=== PATIENT | female | born 1945 | race Caucasian/White ===

== ENCOUNTER 2017-10-23 22:26 | Inpatient (IN) | END 2017-10-27 19:35 | disposition home health service (06) | DRG 100 ==

== ENCOUNTER 2018-06-22 04:18 | Inpatient (IN) | payer MEDICARE, OTHER ==
[~2018-06-22] VITALS: Ht 152.4 cm; Wt 58.2 kg
[~2018-06-22 04:18] MED LIST: ACET325T33 PO; ALBU8.5H5 INH; ASPI-817 PO; FAMO-95 PO; LORA-186 PO; LOSA50TA14 PO; METO-448 PO; NITR-58 PO; NITR0.4T39 SL; SIMV20TA2 PO; VALP250C PO; ZOLP5TAB PO
[2018-06-22] MEDS ORDERED: BENA10TA4 PO (05:13)
[2018-06-22] MEDS ORDERED: LEVO25TA6 PO (05:13)
[2018-06-22] MEDS ORDERED: RISP1TAB3 PO (05:13)
[2018-06-22] MEDS ORDERED: ACETAMINOPHEN 325 MG TAB PO PRN (06:30)
[2018-06-22] MEDS ORDERED: NACL 0.9% 3 ML SYG IV SCH (06:30)
[2018-06-22] MEDS ORDERED: ONDANSETRON 4 MG INJ IV PRN (06:30)
[2018-06-22] MEDS: SOD CHLORIDE 0.9% 1,000 ML IV SCH ×3 (08:11→20:24)
[2018-06-22] MEDS ORDERED: ALBUTEROL 0.083% (NEB) 2.5 MG/3 ML AMP HHN PRN (16:00)
[2018-06-22 16:31] VITALS: PULSE 76
[2018-06-22 16:39] VITALS: BP 144/61; PULSE 75; RESP 16
[2018-06-22 16:46] VITALS: Ht 152.4 cm; Wt 58.2 kg
[2018-06-22] MEDS: LEVOFLOXACIN 500MG/D5W (PMX) 100 ML IVPB SCH (17:14)
[2018-06-22 20:00] VITALS: PULSE 80
[2018-06-22 20:08] VITALS: BP 132/67; PULSE 80; RESP 18
[2018-06-22] MEDS: METOPROLOL 25 MG TAB PO SCH (21:00)
[2018-06-22] MEDS: VALPROIC ACID 250 MG CAP PO SCH (21:00)
[2018-06-22] MEDS: FAMOTIDINE 20 MG TAB PO SCH (21:00)
[2018-06-22] MEDS: LOSARTAN 50 MG TAB PO SCH (21:00)
[2018-06-22] MEDS: ATORVASTATIN 10 MG TAB PO SCH (21:00)
--- NOTE | 2018-06-22 22:56 | ERD ---
ER Documentation Chief Complaint Chief Complaint BIB DAUGHTER FROM HOME W/ C/O COUGH X1 WEEK, DIFFICULTY AMBULATING HPI This is a 73-year-old female brought in by the daughter for essentially altered level of consciousness. Initial complaint was cough and difficulty ambulating for 1 week, however the daughter said that she has been out of sorts and confused over the past week. They feel that this is related to the increase in Depakote the patient recently underwent. No fevers no chills no nausea vomiting. No head trauma. No focal neurologic complaints and no focal weakness. No dysarthria noted. Patient seems somewhat confused history is limited. History per family at the bedside. ROS All systems reviewed and are negative except as per history of present illness. Medications Home Meds Active Scripts Valproic Acid* (Depakene*) 250 Mg Capsule, 500 MG PO BID for 60 Days, #30 CAP 4 Refills Prov:ANGELO CAMPOS MD 10/27/17 Acetaminophen* (Tylenol*) 325 Mg Tablet, 1 TAB PO Q6 PRN for PAIN AND OR ELEVATED TEMP, #20 TAB Prov:MICHEAL MARTINEZ NP 04/15/15 Metoprolol Tartrate* (Lopressor*) 25 Mg Tab, 25 MG PO BID for 30 Days, TAB Prov:JIMMY TERRAZAS. 03/22/15 Famotidine* (Pepcid* AC) 20 Mg Tab, 20 MG PO Q12 for 14 Days, TAB Prov:JIMMY TERRAZAS. 03/22/15 Simvastatin (Simvastatin) 20 Mg Tablet, 20 MG PO QHS, #30 TAB 1 Refill Prov:BRIAN KOENIG MD 02/01/15 Albuterol Sulfate* (Albuterol Sulfate* HFA) 8.5 Gm Hfa.aer.ad, 1-2 PUFF INH Q6, #1 INHALER Prov:BRIAN KOENIG MD 01/24/15 Reported Medications Levothyroxine Sodium* (Levothyroxine Sodium*) 25 Mcg Tablet, 25 MG PO QAM for 30 Days, #30 06/22/18 Risperidone* (Risperidone*) 1 Mg Tablet, 1 MG PO DAILY for 30 Days, #30 06/22/18 Benazepril Hcl* (Benazepril Hcl*) 10 Mg Tablet, 10 MG PO DAILY for 90 Days, #90 06/22/18 Losartan Potassium* (Losartan Potassium*) 50 Mg Tablet, 50 MG PO BID, TAB 04/24/15 Loratadine* (Claritin*) 10 Mg Tablet, 10 MG PO DAILY, TAB 01/29/15 Aspirin* (Aspirin* EC) 81 Mg Tablet.dr, 81 MG PO DAILY, TAB 11/07/14 Discontinued Scripts Nitrofurantoin Monohyd Macrocr* (Macrobid*) 100 Mg Capsr, 100 MG PO BID for 4 Days, #8 CAP Prov:ANGELO CAMPOS MD 10/27/17 Zolpidem Tartrate* (Ambien*) 5 Mg Tablet, 5 MG PO HS PRN for INSOMNIA, #7 TAB Prov:ASHLEY PERRY DO 05/06/15 Nitroglycerin* (Nitrostat*) 25 Tab Subl, 1 TAB SL Q5M PRN for CHEST PAIN, #30 TAB Prov:BRIAN KOENIG MD 02/01/15 Allergies Allergies: Coded Allergies: ertapenem (Unverified Allergy, Severe, 06/22/18) SEIZURES lacosamide (Verified Allergy, Unknown, 06/22/18) levetiracetam (Verified Allergy, Unknown, 06/22/18) hydrocodone (Unverified Adverse Reaction, Severe, Severe Nausea/Vomiting/Dizziness, 06/22/18) PMhx/Soc History of Surgery: Yes (Bladder reconstruction) Anesthesia Reaction: No Hx Neurological Disorder: Yes (seizures) Hx Respiratory Disorders: No Hx Cardiac Disorders: Yes (HTN, high cholesterol) Hx Psychiatric Problems: No Hx Miscellaneous Medical Probl: No Hx Alcohol Use: No Hx Substance Use: No Hx Tobacco Use: No Smoking Status: Never smoker Physical Exam Vitals Vital Signs Date Temp Pulse Resp B/P (MAP) Pulse Ox O2 O2 Flow FiO2 Time Delivery Rate 06/22/18 98.0 108 22 155/66 91 04:21 (95) Physical Exam Const: No acute distress Head: Atraumatic Eyes: Normal Conjunctiva ENT: Normal External Ears, Nose and Mouth. Neck: Full range of motion. No meningismus. Resp: Clear to auscultation bilaterally Cardio: Regular rate and rhythm, no murmurs Abd: Soft, non tender, non distended. Normal bowel sounds Skin: No petechiae or rashes Back: No midline or flank tenderness Ext: No cyanosis, or edema Neur: Awake and alert Psych: Normal Mood and Affect Result Diagram: 06/22/18 0440 06/22/18 0440 Results 24 hrs Laboratory Tests Test 06/22/18 04:40 06/22/18 05:25 06/22/18 05:29 06/22/18 05:34 White Blood Count 8.3 10^3/ul Red Blood Count 4.68 10^6/ul Hemoglobin 14.8 g/dl Hematocrit 43.0 % Mean Corpuscular 91.9 fl Volume Mean Corpuscular 31.6 pg Hemoglobin Mean Corpuscular 34.4 g/dl Hemoglobin Concent Red Cell 13.7 % Distribution Width Platelet Count 88 10^3/UL Mean Platelet 10.3 fl Volume Immature 2.200 % Granulocytes % Neutrophils % 35.6 % Lymphocytes % 46.1 % Monocytes % 15.4 % Eosinophils % 0.0 % Basophils % 0.7 % Nucleated Red Blood 0.0 /100WBC Cells % Immature 0.180 10^3/ul Granulocytes # Neutrophils # 2.9 10^3/ul Lymphocytes # 3.8 10^3/ul Monocytes # 1.3 10^3/ul Eosinophils # 0.0 10^3/ul Basophils # 0.1 10^3/ul Nucleated Red Blood 0.0 10^3/ul Cells # Platelet Estimate DECREASED Prothrombin Time 13.0 Sec Prothrombin Time 1.0 Ratio INR International 0.97 Normalized Ratio Activated 27.7 Sec Partial Thromboplas t Time Sodium Level 136 mmol/L Potassium Level 4.6 mmol/L Chloride Level 106 mmol/L Carbon Dioxide 22 mmol/L Level Anion Gap 8 Blood Urea Nitrogen 12 mg/dl Creatinine 0.78 mg/dl Est Glomerular mL/min Filtrat Rate mL/min Glucose Level 100 mg/dl Calcium Level 9.1 mg/dl Total Bilirubin 0.6 mg/dl Direct Bilirubin 0.00 mg/dl Indirect Bilirubin 0.6 mg/dl Aspartate Amino 33 IU/L Transf (AST/SGOT) Alanine 18 IU/L Aminotransferase (A LT/SGPT) Alkaline 82 IU/L Phosphatase Troponin I < 0.012 ng/ml B-Type Natriuretic 417 PG/ML Peptide Total Protein 7.3 g/dl Albumin 3.2 g/dl Globulin 4.10 g/dl Albumin/Globulin 0.78 Ratio Salicylates Level < 1.0 mg/dl Acetaminophen Level < 10.0 ug/ml Ethyl Alcohol Level < 10.0 mg/dl Bedside Glucose 91 mg/dL POC Venous Lactate 1.5 mmol/L Lactic Acid Level 1.7 mmol/L Procedures/MDM EKG: Rate/Rhythm: [Normal Sinus Rhythm] QRS, ST, T-waves: [No changes consistent w/ acute ischemia] Impression: [No evidence of ischemia or arrhythmia] Chest X-ray 1V Interpreted by me: Soft Tissue: No acute abnormalities Bones: No acute abnormalities Mediastinum/Cardiac Silhouette/Lungs: [No acute abnormalities] Medical decision makin female with undifferentiated altered mental status. Patient will be admitted for further evaluation and management. Hospitalist made aware of admission. Hospitalist also made aware of all results. Family at bedside notified. Departure Diagnosis: Primary Impression: Altered level of consciousness Condition: CHARI Navarro June 22, 2018 22:56
[2018-06-23] VITALS (11 sets, daily range): BP systolic 127–148; BP diastolic 63–79; PULSE 70–89; RESP 16–19
--- NOTE | 2018-06-23 07:15 | HP ---
DATE OF ADMISSION: 06/22/2018 PRESENTING COMPLAINT: Altered mentation. HISTORY OF PRESENTING COMPLAINT: This is a 73-year-old female with a history of a previous CVA, dyslipidemia and a high blood pressure, who was brought in by her daughter because of worsening mentation over the last 2 weeks. Apparently, the patient suffered a first time seizure about 2 weeks ago. Also then her mentation has been worsening to the point where the patient is now unable to ambulate or do ADLs by herself, which she was able to do prior. There is no fever. There has been no loss of consciousness. No visible bony abnormalities or defects or swelling. The patient daughter just says she has lost ability to do stuff on her own. PAST MEDICAL HISTORY: 1. Previous CVA. 2. Dyslipidemia. 3. Hypertension. 4. Hypothyroidism. 5. New onset seizure. PAST SURGICAL HISTORY: Repair of bladder prolapse. The patient is clinically disabled and prior to this was ambulatory with use of a walker. ALLERGIES: ALLERGIC TO HYDROCODONE CAUSES HER NAUSEA AND VOMITING. SOCIAL HISTORY: Denies tobacco, alcohol, history of drug use. FAMILY HISTORY: Noncontributory. HOME MEDICATIONS: Reviewed and reconciled. PHYSICAL EXAMINATION: VITAL SIGNS: Temperature 98.2, pulse 74, respirations 18, blood pressure 97/58, saturations 95% on room air. GENERAL: alert, oriented x1 only. Currently, no distress. HEENT: Head is normocephalic. No evidence of trauma. Pupils equal and reactive. NECK: Supple. CHEST: With diminished but clear breath sounds without crackles or wheezes. CARDIOVASCULAR: S1, S2. ABDOMEN: Soft, nontender, nondistended. EXTREMITIES: Lower extremities negative for edema. NEUROLOGIC: L sided hemiparesis, but global lethargy and weakness LABORATORY VALUES: Her laboratory values were reviewed. IMAGING: Chest x-ray showed a possible left lower lobe infiltrate. CT shows old occipital infarct, diffuse degenerative changes and evidence of sinusitis. ASSESSMENT: 1. Slowly worsening debility and loss of function with reduction in cognition over the last 2 weeks. 2. Possible urinary tract infection because of previous CVA, rule out acute infarct. 3. History of seizure disorder. 4. Dyslipidemia. 5. Hypertension. 6. Chronic allergies. 7. Hypothyroidism. 8. Possible left lower lobe pneumonia versus atelectasis. PLAN: Admit to telemetry for at least 24 hours to ensure no arrhythmia while we do a stroke workup. We will also get physical therapy to evaluate the patient as well as speech therapy. Begin empiric antibiotics for possible UTI and send urine for cultures. We will use antibiotic with coverage for possible aspiration pneumonitis as well. Resume all other medications. Neurology consultation as well. Other interventions depend on clinical course. The patient will also be maintained on seizure prophylaxis. Dictated By: JIMMY TERRAZAS MD BA/NTS Conf#: [id number] DID#: [id number] CC: AMPARO GRANADO MD;*EndCC* MTDD
[2018-06-23] MEDS ORDERED: LEVOTHYROXINE 25 MCG TAB PO SCH (09:00)
[2018-06-23] MEDS: BENAZEPRIL 10 MG TAB PO SCH (09:38)
[2018-06-23] MEDS: VALPROIC ACID 250 MG CAP PO SCH ×2 (09:38→21:51)
[2018-06-23] MEDS: LOSARTAN 50 MG TAB PO SCH ×2 (09:39→21:53)
[2018-06-23] MEDS: METOPROLOL 25 MG TAB PO SCH ×2 (09:39→21:53)
[2018-06-23] MEDS: LEVOTHYROXINE 25 MCG TAB PO SCH (09:39)
[2018-06-23] MEDS: ASPIRIN (EC) 81 MG TAB PO SCH (09:39)
[2018-06-23] MEDS: LORATADINE 10 MG TAB PO SCH (09:39)
[2018-06-23] MEDS: FAMOTIDINE 20 MG TAB PO SCH ×2 (09:39→21:52)
[2018-06-23] MEDS: SOD CHLORIDE 0.9% 1,000 ML IV SCH (09:40)
--- NOTE | 2018-06-23 10:44 | PN ---
Date/Time of Note Date/Time of Note DATE: 06/23/18 TIME: 10:36 Assessment/Plan VTE Prophylaxis Risk score (from Ns)>0 risk: 6 SCD applied (from Ns): Yes Pharmacological prophylaxis: LMWH Lines/Catheters IV [facility]from [facility] Saline Lock Urinary Cath still in place: No Assessment/Plan Hospital Course 1. Slowly worsening debility and loss of function with reduction in cognition over the last 2 weeks. --Physical therapy evaluation pending, await recommendations -Brain MRI was also done, await findings 2. Possible urinary tract infection because of previous CVA, rule out acute infarct. -Follow-up urine cultures 3. History of seizure disorder. 4. Dyslipidemia. 5. Hypertension. - Systolic blood pressure is still suboptimal in control, but will hold off on adjusting medications at this time as patient's blood pressure dropped significantly yesterday 6. Chronic allergies. 7. Hypothyroidism. -Patient was found to elevate have elevated TSH, but free T4 within normal range. Will slightly increase dosing of levothyroxine 8. Possible left lower lobe pneumonia versus atelectasis and Bronchitis? --We will also get 2D echo and continue antibiotics --Chest x-ray showed no congestion or effusion. PLAN: Continue patient supportive care, plan of care as above-. Further interventions per clinical course Result Diagram: 06/23/18 0555 06/23/18 0555 Results 24hrs Laboratory Tests Test 06/22/18 11:06 06/22/18 11:08 06/23/18 05:55 Valproic Acid (Depakene) Level 98 Lactic Acid Level 1.5 White Blood Count 5.7 # Red Blood Count 4.04 L Hemoglobin 12.7 Hematocrit 37.0 Mean Corpuscular Volume 91.6 Mean Corpuscular Hemoglobin 31.4 Mean Corpuscular Hemoglobin Concent 34.3 Red Cell Distribution Width 13.6 Platelet Count 100 L Mean Platelet Volume 9.7 Immature Granulocytes % 2.300 H Neutrophils % 40.0 Lymphocytes % 38.2 Monocytes % 19.1 H Eosinophils % 0.0 Basophils % 0.4 Nucleated Red Blood Cells % 0.0 Immature Granulocytes # 0.130 H Neutrophils # 2.3 Lymphocytes # 2.2 Monocytes # 1.1 H Eosinophils # 0.0 Basophils # 0.0 Nucleated Red Blood Cells # 0.0 Sodium Level 136 Potassium Level 4.6 Chloride Level 107 Carbon Dioxide Level 23 Anion Gap 6 Blood Urea Nitrogen 14 Creatinine 0.83 Est Glomerular Filtrat Rate mL/min Glucose Level 80 Calcium Level 8.6 Phosphorus Level 3.7 Magnesium Level 1.7 Total Bilirubin 0.7 Direct Bilirubin 0.00 Indirect Bilirubin 0.7 Aspartate Amino Transf (AST/SGOT) 42 Alanine Aminotransferase (ALT/SGPT) 22 Alkaline Phosphatase 52 Total Protein 5.7 #L Albumin 2.4 L Globulin 3.30 H Albumin/Globulin Ratio 0.72 Free Thyroxine 1.81 Subjective 24 Hr Interval Summary Free Text/Dictation Patient is doing much better per her daughter. She is more alert today and more interactive. She is still not speaking much however. Daughter also reporting a lot of phlegm. Daughter notes that patient had a lot of dyspnea with exertion prior to admission. Exam/Review of Systems Exam Vitals Vital Signs Date Temp Pulse Resp B/P (MAP) Pulse Ox O2 O2 Flow FiO2 Time Delivery Rate 06/23/18 79 08:00 06/23/18 98.7 18 148/77 96 07:25 (100) 06/23/18 Room Air 03:52 Intake and Output 06/22/18 06/22/18 06/23/18 1515:00 23:00 07:00 IntakeIntake Total 150 ml 800 ml BalanceBalance 150 ml 800 ml Exam Constitutional: alert, frail, follow commands appropriately, looks comfortable Head: atraumatic, normocephalic Neck: non-tender, supple Respiratory: clear to auscultation Cardiovascular: regular rate and rhythm Gastrointestinal: S/ NT / ND / +BS Extremities: no edema, good radial pulses Results Results 24hrs Laboratory Tests Test 06/22/18 11:06 06/22/18 11:08 06/23/18 05:55 Valproic Acid (Depakene) Level 98 Lactic Acid Level 1.5 White Blood Count 5.7 # Red Blood Count 4.04 L Hemoglobin 12.7 Hematocrit 37.0 Mean Corpuscular Volume 91.6 Mean Corpuscular Hemoglobin 31.4 Mean Corpuscular Hemoglobin Concent 34.3 Red Cell Distribution Width 13.6 Platelet Count 100 L Mean Platelet Volume 9.7 Immature Granulocytes % 2.300 H Neutrophils % 40.0 Lymphocytes % 38.2 Monocytes % 19.1 H Eosinophils % 0.0 Basophils % 0.4 Nucleated Red Blood Cells % 0.0 Immature Granulocytes # 0.130 H Neutrophils # 2.3 Lymphocytes # 2.2 Monocytes # 1.1 H Eosinophils # 0.0 Basophils # 0.0 Nucleated Red Blood Cells # 0.0 Sodium Level 136 Potassium Level 4.6 Chloride Level 107 Carbon Dioxide Level 23 Anion Gap 6 Blood Urea Nitrogen 14 Creatinine 0.83 Est Glomerular Filtrat Rate mL/min Glucose Level 80 Calcium Level 8.6 Phosphorus Level 3.7 Magnesium Level 1.7 Total Bilirubin 0.7 Direct Bilirubin 0.00 Indirect Bilirubin 0.7 Aspartate Amino Transf (AST/SGOT) 42 Alanine Aminotransferase (ALT/SGPT) 22 Alkaline Phosphatase 52 Total Protein 5.7 #L Albumin 2.4 L Globulin 3.30 H Albumin/Globulin Ratio 0.72 Free Thyroxine 1.81 Medications Medication Current Medications Sodium Chloride 1,000 ml @ 70 mls/hr [id number] IV Last administered on 06/23/18 09:40; Admin Dose 70 MLS/HR; Start 06/22/18 at 06:06 IV Flush (NS 3 ml) 3 ml PER PROTOCOL IV ; Start 06/22/18 at 06:30 Ondansetron HCl (Zofran Inj) 4 mg Q6H PRN IV NAUSEA/VOMITING; Start 06/22/18 at 06:30 Acetaminophen (Tylenol Tab) 650 mg Q6H PRN PO .PAIN 1-3 OR TEMP; Start 06/22/18 at 06:30 Aspirin (Halfprin) 81 mg DAILY PO Last administered on 06/23/18 09:39; Admin Dose 81 MG; Start 06/23/18 at 09:00 Benazepril HCl (Lotensin) 10 mg DAILY PO Last administered on 06/23/18 09:38; Admin Dose 10 MG; Start 06/23/18 at 09:00 Famotidine (Pepcid) 20 mg Q12 PO Last administered on 06/23/18 09:39; Admin Dose 20 MG; Start 06/22/18 at 21:00 Loratadine (Claritin) 10 mg DAILY PO Last administered on 06/23/18 09:39; Admin Dose 10 MG; Start 06/23/18 at 09:00 Losartan Potassium (Cozaar) 50 mg BID PO Last administered on 06/23/18 09:39; Admin Dose 50 MG; Start 06/22/18 at 21:00 Metoprolol Tartrate (Lopressor) 25 mg BID PO Last administered on 06/23/18at 09:39; Admin Dose 25 MG; Start 06/22/18 at 21:00 Valproic Acid (Depakene) 500 mg BID PO Last administered on 06/23/18at 09:38; Admin Dose 500 MG; Start 06/22/18 at 21:00 Atorvastatin Calcium (Lipitor) 10 mg DAILY@21 PO ; Start 06/22/18 at 21:00 Albuterol (Proventil 0.083% (Neb)) 2.5 mg Q4H RESP THERAPY PRN HHN SHORTNESS OF BREATH; Start 06/22/18 at 16:00 Levofloxacin/ Dextrose 100 ml @ 100 mls/hr Q48H IVPB Last administered on 06/22/18at 17:14; Admin Dose 100 MLS/HR; Start 06/22/18 at 16:00 Levothyroxine Sodium (Synthroid) 25 mcg QAM PO Last administered on 06/23/18at 09:39; Admin Dose 25 MCG; Start 06/23/18 at 09:00 JIMMY TERRAZAS June 23, 2018 10:44
[2018-06-23] MEDS ORDERED: MAGNESIUM SULFATE 1 GM/D5W 100 ML IVPB ONE (11:00)
[2018-06-23] MEDS: ENOXAPARIN 40 MG/0.4 ML SYG SC SCH (12:32)
[2018-06-23] MEDS ORDERED: LORAZEPAM 2 MG INJ IV ONE ×2 (15:00→15:30)
[2018-06-23] MEDS ORDERED: LORAZEPAM 2 MG INJ IV PRN (15:30)
--- NOTE | 2018-06-23 15:41 | STROKE ---
Date/Time of Note Date/Time of Note DATE: 06/23/18 TIME: 15:34 Patient Information General Patient location: inpatient Arrival Date Age 73 Gender female Weight 58.2 kg POC Glucose Glucose Result Bedside Glucose - 72 Hours Test 06/22/18 05:25 Bedside Glucose 91 mg/dL (70-220) Vital Signs Vital Signs Vital Signs Date Temp Pulse Resp B/P (MAP) Pulse Ox O2 O2 Flow FiO2 Time Delivery Rate 06/23/18 70 12:17 06/23/18 98.5 19 140/79 96 11:02 (99) 06/23/18 Room Air 03:52 Patient History Current Medications Allergies: Coded Allergies: ertapenem (Unverified Allergy, Severe, 06/22/18) SEIZURES lacosamide (Verified Allergy, Unknown, 06/22/18) levetiracetam (Verified Allergy, Unknown, 06/22/18) hydrocodone (Unverified Adverse Reaction, Severe, Severe Nausea/Vomiting/Dizziness, 06/22/18) History & Physical Patient History Notes Pt Hx Reviewed History of Present Illness 73yo had a first time sz 2 weeks ago and then started Depakote, but weaker since then and lost ambulation, admitted for AMS. Found to have UTI with baseline right hemiparesis from previous stroke. Now with acute onset twitching on left face with slurred speech. Patient missed her Depakote last night but dose was increased this morning from 250 BID to 500 BID. Review of Systems Constitutional: no symptoms reported EENTM: no symptoms reported Respiratory: no symptoms reported Cardiovascular: no symptoms reported Gastrointestinal: no symptoms reported Genitourinary: no symptoms reported Musculoskeletal: no symptoms reported Skin: no symptoms reported Psychiatric/Neurological: no symptoms reported All Other Systems: Reviewed and Negative NIH Stroke Scale NIH Stroke Scale [id number] 4d LOC Questions: Gcojy4g LOC Commands: Zlguf0q t Gaze: Nvvim6t : Vvuum7n alsy: Aortr6m rm - Left: Dkpmg9g - Right: Nkfly7p eft: Pkmbu8o - Right: Jsgkk1a Kltpb0r Qrpxb9j st Language: Pnqvg5a venita: Nmzyp7d : Wqlko1a in the left face) Date/Time Recorded DATE: 06/23/18 TIME: 15:34 Submitted By Dion Peña t-PA Imaging Review Imaging Reviewed: Yes Date/Time Imaging Reviewed DATE: 06/23/18 TIME: 15:34 Inclusion/Exclusion Criteria CT Head- no acute changes t-PA Administration Recommendation: No Weight 58.2 kg Recommedation submitted by Dion Peña Reason t-PA not Recommended not stroke t-PA Not Recommended Date/Time 15:00 Recommendations Impression Diagnosis seizure Recommendation 73yo F presents with acute onset confusion and left facial twitching. Neurological exam is notable for patient's baseline left sided weakness and numbness as well as new left facial twitching and right gaze deviation. I believe the patient is having focal seizures. Patient was administered Ativan 2mg IV x 1 and seizures stopped clinically. Depakote dose has been increased today and I recommend checking valproate level in the morning prior to first dose. I recommend EEG as well. DION PEÑA June 23, 2018 15:41
--- NOTE | 2018-06-23 16:31 | CONS ---
Assessment/Plan Assessment/Plan Hospital Course 73 yo F with hx of seizures who presents for evaluation of progressive ams and weakness... for which neurology is consulted. The pt appears to have a refractory UTI, which is likely to be contributing. This is most clinically consistent with an acute toxic-metabolic encephalopathy in the context of systemic infection. A focal [employer] process is less likely. MRI is reassuringly without acute intracranial pathology. P: EEG to exclude subclinical seizures Cont depakote 750mg BID for now; repeat level in am Ativan IV PRN prolonged seizure or for cluster [place] as able Limit sedating medications where possible PT/OT/ST as necessary Will follow clinically Consultation Date/Type/Reason Admit Date/Time June 23, 2018 at 10:46 Type of Consult Neurology Reason for Consultation ams Requesting Provider: JIMMY TERRAZAS Date/Time of Note DATE: 06/23/18 TIME: 16:30 Hx of Present Illness 73 yo F with hx of seizures and other comorbidities who presented to the ED for evaluation of increasing ams and generalized weakness x 2 weeks. History was obtained from family and chart review as pt is currently unable to contribute. Per the family, the pt had a seizure about 2 weeks ago, for which she was taken to [facility]. She was found to have a UTI and started on abx for it. For her seizures, she normally takes depakote 500mg BID. During her hospitali zation, they increased her depakote to 750mg BID. The family states that since her dose increase, she has become progressively altered, weak, and unable to walk. It is additionally elsewhere noted: PRESENTING COMPLAINT: Altered mentation. HISTORY OF PRESENTING COMPLAINT: This is a 73-year-old female with a history of a previous CVA, dyslipidemia and a high blood pressure, who was brought in by her daughter because of worsening mentation over the last 2 weeks. Apparently, the patient suffered a first time seizure about 2 weeks ago. Also then her mentation has been worsening to the point where the patient is unable to ambulate or do ADLs by herself, which she was able to do prior. There is no fever. There has been no loss of consciousness. No visible bony abnormalities or defects or swelling. The patient just says ____ lost ability to do stuff on her own. Subjective hx not possible: pt non-verbal Exam/Review of Systems Exam Vitals Vital Signs Date Temp Pulse Resp B/P (MAP) Pulse Ox O2 O2 Flow FiO2 Time Delivery Rate 06/23/18 77 16:24 06/23/18 98.5 19 140/79 96 11:02 (99) 06/23/18 Room Air 03:52 Intake and Output 06/22/18 06/22/18 06/23/18 1515:00 23:00 07:00 IntakeIntake Total 150 ml 800 ml BalanceBalance 150 ml 800 ml Exam PE: Gen Appearance: No Apparent Distress HEENT: Normocephalic Cardiovascular: Regular rate Abdomen: Soft Extremities: Dry NE: The patient was obtunded and nonverbal. Moans to noxious stimuli. Cranial nerve examination was limited by mental status. Pupils were equal and reactive to light. There was no afferent pupillary defect. Funduscopic examination was limited. Face was grossly symmetric, w/ present corneal and cough reflexes. Tone was normal. Muscle bulk was reduced. I did not see fasciculations. The patient withdrew to noxious stimulation x 4. Coordination and gait testing was limited by mental status. Arm and leg reflexes were within normal limits and symmetric. Cuevas's sign was absent. Plantar responses were flexor. Results Result Diagram: 06/23/18 0555 06/23/18 0555 Results 24hrs Laboratory Tests Test 06/23/18 05:55 White Blood Count 5.7 # Red Blood Count 4.04 L Hemoglobin 12.7 Hematocrit 37.0 Mean Corpuscular Volume 91.6 Mean Corpuscular Hemoglobin 31.4 Mean Corpuscular Hemoglobin Concent 34.3 Red Cell Distribution Width 13.6 Platelet Count 100 L Mean Platelet Volume 9.7 Immature Granulocytes % 2.300 H Neutrophils % 40.0 Lymphocytes % 38.2 Monocytes % 19.1 H Eosinophils % 0.0 Basophils % 0.4 Nucleated Red Blood Cells % 0.0 Immature Granulocytes # 0.130 H Neutrophils # 2.3 Lymphocytes # 2.2 Monocytes # 1.1 H Eosinophils # 0.0 Basophils # 0.0 Nucleated Red Blood Cells # 0.0 Sodium Level 136 Potassium Level 4.6 Chloride Level 107 Carbon Dioxide Level 23 Anion Gap 6 Blood Urea Nitrogen 14 Creatinine 0.83 Est Glomerular Filtrat Rate mL/min Glucose Level 80 Calcium Level 8.6 Phosphorus Level 3.7 Magnesium Level 1.7 Total Bilirubin 0.7 Direct Bilirubin 0.00 Indirect Bilirubin 0.7 Aspartate Amino Transf (AST/SGOT) 42 Alanine Aminotransferase (ALT/SGPT) 22 Alkaline Phosphatase 52 Total Protein 5.7 #L Albumin 2.4 L Globulin 3.30 H Albumin/Globulin Ratio 0.72 Free Thyroxine 1.81 Medications Medication Current Medications Sodium Chloride 1,000 ml @ 70 mls/hr [id number] IV Last administered on 06/23/18 09:40; Admin Dose 70 MLS/HR; Start 06/22/18 at 06:06 IV Flush (NS 3 ml) 3 ml PER PROTOCOL IV ; Start 06/22/18 at 06:30 Ondansetron HCl (Zofran Inj) 4 mg Q6H PRN IV NAUSEA/VOMITING; Start 06/22/18 at 06:30 Acetaminophen (Tylenol Tab) 650 mg Q6H PRN PO .PAIN 1-3 OR TEMP; Start 06/22/18 at 06:30 Aspirin (Halfprin) 81 mg DAILY PO Last administered on 06/23/18 09:39; Admin Dose 81 MG; Start 06/23/18 at 09:00 Benazepril HCl (Lotensin) 10 mg DAILY PO Last administered on 06/23/18 09:38; Admin Dose 10 MG; Start 06/23/18 at 09:00 Famotidine (Pepcid) 20 mg Q12 PO Last administered on 06/23/18 09:39; Admin Dose 20 MG; Start 06/22/18 at 21:00 Loratadine (Claritin) 10 mg DAILY PO Last administered on 06/23/18 09:39; Admin Dose 10 MG; Start 06/23/18 at 09:00 Losartan Potassium (Cozaar) 50 mg BID PO Last administered on 06/23/18 09:39; Admin Dose 50 MG; Start 06/22/18 at 21:00 Metoprolol Tartrate (Lopressor) 25 mg BID PO Last administered on 06/23/18 09:39; Admin Dose 25 MG; Start 06/22/18 at 21:00 Valproic Acid (Depakene) 500 mg BID PO Last administered on 06/23/18 09:38; Admin Dose 500 MG; Start 06/22/18 at 21:00 Atorvastatin Calcium (Lipitor) 10 mg DAILY@21 PO ; Start 06/22/18 at 21:00 Albuterol (Proventil 0.083% (Neb)) 2.5 mg Q4H RESP THERAPY PRN HHN SHORTNESS OF BREATH; Start 06/22/18 at 16:00 Levofloxacin/ Dextrose 100 ml @ 100 mls/hr Q48H IVPB Last administered on 06/22/18at 17:14; Admin Dose 100 MLS/HR; Start 06/22/18 at 16:00 Levothyroxine Sodium (Synthroid) 25 mcg QAM PO Last administered on 06/23/18at 09:39; Admin Dose 25 MCG; Start 06/23/18 at 09:00 Enoxaparin Sodium (Lovenox) 40 mg DAILY SC Last administered on 06/23/18at 12:32; Admin Dose 40 MG; Start 06/23/18 at 11:00 Lorazepam (Ativan) 2 mg Q4H PRN IV SEIZURES; Start 06/23/18 at 15:30 Past Medical History reviewed Home Meds Active Scripts Valproic Acid* (Depakene*) 250 Mg Capsule, 500 MG PO BID for 60 Days, #30 CAP 4 Refills Prov:ANGELO CAMPOS MD 10/27/17 Acetaminophen* (Tylenol*) 325 Mg Tablet, 1 TAB PO Q6 PRN for PAIN AND OR ELEVATED TEMP, #20 TAB Prov:MICHEAL MARTINEZ NP 04/15/15 Metoprolol Tartrate* (Lopressor*) 25 Mg Tab, 25 MG PO BID for 30 Days, TAB Prov:JIMMY TERRAZAS 03/22/15 Famotidine* (Pepcid* AC) 20 Mg Tab, 20 MG PO Q12 for 14 Days, TAB Prov:JIMMY TERRAZAS. 03/22/15 Simvastatin (Simvastatin) 20 Mg Tablet, 20 MG PO QHS, #30 TAB 1 Refill Prov:BRIAN KOENIG MD 02/01/15 Albuterol Sulfate* (Albuterol Sulfate* HFA) 8.5 Gm Hfa.aer.ad, 1-2 PUFF INH Q6, #1 INHALER Prov:BRIAN KOENIG MD 01/24/15 Reported Medications Levothyroxine Sodium* (Levothyroxine Sodium*) 25 Mcg Tablet, 25 MG PO QAM for 30 Days, #30 5/15/19 Risperidone* (Risperidone*) 1 Mg Tablet, 1 MG PO DAILY for 30 Days, #30 06/22/18 Benazepril Hcl* (Benazepril Hcl*) 10 Mg Tablet, 10 MG PO DAILY for 90 Days, #90 06/22/18 Losartan Potassium* (Losartan Potassium*) 50 Mg Tablet, 50 MG PO BID, TAB 04/24/15 Loratadine* (Claritin*) 10 Mg Tablet, 10 MG PO DAILY, TAB 01/29/15 Aspirin* (Aspirin* EC) 81 Mg Tablet.dr, 81 MG PO DAILY, TAB 11/07/14 Discontinued Scripts Nitrofurantoin Monohyd Macrocr* (Macrobid*) 100 Mg Capsr, 100 MG PO BID for 4 D ays, #8 CAP Prov:ANGELO CAMPOS MD 10/27/17 Zolpidem Tartrate* (Ambien*) 5 Mg Tablet, 5 MG PO HS PRN for INSOMNIA, #7 TAB Prov:ASHLEY PERRY DO 05/06/15 Nitroglycerin* (Nitrostat*) 25 Tab Subl, 1 TAB SL Q5M PRN for CHEST PAIN, #30 TAB Prov:BRIAN KOENIG MD 02/01/15 Medications Current Medications Sodium Chloride 1,000 ml @ 70 mls/hr [id number] IV Last administered on 06/23/18at 09:40; Admin Dose 70 MLS/HR; Start 06/22/18 at 06:06 IV Flush (NS 3 ml) 3 ml PER PROTOCOL IV ; Start 06/22/18 at 06:30 Ondansetron HCl (Zofran Inj) 4 mg Q6H PRN IV NAUSEA/VOMITING; Start 06/22/18 at 06:30 Acetaminophen (Tylenol Tab) 650 mg Q6H PRN PO .PAIN 1-3 OR TEMP; Start 06/22/18 at 06:30 Aspirin (Halfprin) 81 mg DAILY PO Last administered on 06/23/18at 09:39; Admin Dose 81 MG; Start 06/23/18 at 09:00 Benazepril HCl (Lotensin) 10 mg DAILY PO Last administered on 06/23/18at 09:38; Admin Dose 10 MG; Start 06/23/18 at 09:00 Famotidine (Pepcid) 20 mg Q12 PO Last administered on 06/23/18 09:39; Admin Dose 20 MG; Start 06/22/18 at 21:00 Loratadine (Claritin) 10 mg DAILY PO Last administered on 06/23/18 09:39; Admin Dose 10 MG; Start 06/23/18 at 09:00 Losartan Potassium (Cozaar) 50 mg BID PO Last administered on 06/23/18 09:39; Admin Dose 50 MG; Start 06/22/18 at 21:00 Metoprolol Tartrate (Lopressor) 25 mg BID PO Last administered on 06/23/18 09:39; Admin Dose 25 MG; Start 06/22/18 at 21:00 Valproic Acid (Depakene) 500 mg BID PO Last administered on 06/23/18 09:38; Admin Dose 500 MG; Start 06/22/18 at 21:00 Atorvastatin Calcium (Lipitor) 10 mg DAILY@21 PO ; Start 06/22/18 at 21:00 Albuterol (Proventil 0.083% (Neb)) 2.5 mg Q4H RESP THERAPY PRN HHN SHORTNESS OF BREATH; Start 06/22/18 at 16:00 Levofloxacin/ Dextrose 100 ml @ 100 mls/hr Q48H IVPB Last administered on 06/22/18 17:14; Admin Dose 100 MLS/HR; Start 06/22/18 at 16:00 Levothyroxine Sodium (Synthroid) 25 mcg QAM PO Last administered on 06/23/18 09:39; Admin Dose 25 MCG; Start 06/23/18 at 09:00 Enoxaparin Sodium (Lovenox) 40 mg DAILY SC Last administered on 06/23/18at 12:32; Admin Dose 40 MG; Start 06/23/18 at 11:00 Lorazepam (Ativan) 2 mg Q4H PRN IV SEIZURES; Start 06/23/18 at 15:30 Allergies: Coded Allergies: ertapenem (Unverified Allergy, Severe, 06/22/18) SEIZURES lacosamide (Verified Allergy, Unknown, 06/22/18) levetiracetam (Verified Allergy, Unknown, 06/22/18) hydrocodone (Unverified Adverse Reaction, Severe, Severe Nausea/Vomiting/Dizziness, 06/22/18) Past Surgical History reviewed Past Surgical Hx: other Social History reviewed Smoking Status: Never smoker AMNA GRISSOM NP June 23, 2018 16:31 CLAIRE MARQUES June 24, 2018 15:24
--- NOTE | 2018-06-23 18:08 | QN ---
Documentation Comment As Physician Advisor I have reviewed the chart and have determined that as of today, this patient continues to receive medically necessary care required for the diagnosis and treatment of illness or injury. There has been no unreasonable delay in the rendering of medically necessary services, and medically necessary care has required a length of stay greater than two midnights. Additional information gained during the stay now suggests this patient should have been classified as an inpatient at the time of admission, and I will change the status to inpatient to reflect that medical judgment. Besides the notes from the medical providers, the following information was used in this determination: Ongoing seizures, need for advanced imaging and EEG IV antibiotics Please call me at [phone] with questions. DENTON WANG MD June 23, 2018 18:08
--- NOTE | 2018-06-23 18:10 | RADRPT ---
Echocardiogram Report Patient Name: Stephania WILKINSnt ID: [id number] : 1945 (73y 1m)Study Date: 06/23/2018 11:23:31 AM Gender: FAccession #: [id number] Tech: Emmanuel Larry [facility] Location: [id number] Ref.Physician: JIMMY TERRAZAS Height(Cm): BSA: Weight(Kg): Quality: AdequateOrder Physician: JIMMY TERRAZAS Account #: Procedures: Echocardiographic Report: Transthoracic echocardiogram with complete 2D, M-Mode, and doppler examination. Indications: Shortness of breath with exertion. Measurements: 2D/M Mode Doppler Measurement Value Normal Range Measurement Value Normal Range LVIDd 2D 3.8 [ 3.8 - 5.2 ] cm AV Peak Aung 1.3 [ 100.0 - 170.0 ] cm/sec LVIDs 2D 2.2 [ 2.2 - 3.5 ] cm AV Peak PG 6.0 [ 2.0 - 9.0 ] mmHg LVPWd 2D 1.1 [ 0.6 - 0.9 ] cm AI Peak PG 76.0 mmHg IVSd 2D 1.3 [ 0.6 - 0.9 ] cm AI Peak Aung 4.4 cm/sec AoR Diam 2D 3.1 [ 2.3 - 3.1 ] cm AI PHT 440.0 msec EDV 2D 60.4 [ 46.0 - 106.0 ] ml LVOT Peak Aung 0.9 [ 70.0 - 110.0 ] cm/sec ESV 2D 17.0 [ 14.0 - 42.0 ] ml LVOT Peak PG 3.0 [ 2.0 - 6.0 ] mmHg EF 2D 71.9 [ 54.0 - 74.0 ] percent MV E Peak Aung 0.5 [ 60.0 - 130.0 ] cm/sec LA Dimen 2D 2.1 [ 2.7 - 3.8 ] cm MV A Peak Aung 0.6 [ 100.0 - 120.0 ] cm/sec MV E/A 0.8 [ 0.8 - 1.5 ] ratio MV Decel Time 197 [ 104 - 258 ] msec Lat E` Aung 0.1 [ 10.0 - 15.0 ] cm/sec Lateral E/E` 8.8 [ 1.0 - 2.0 ] ratio MV E/A 0.8 [ 0.8 - 1.5 ] ratio TR Peak Aung 2.3 [ 100.0 - 280.0 ] cm/sec TR Peak PG 21.0 mmHg RVSP 24.0 [ 10.0 - 36.0 ] mmHg RA Pressure 3.0 mmHg Findings: Left Ventricle: Normal left ventricular systolic function. Normal left ventricular cavity size. Mild concentric left ventricular hypertrophy. Ejection fraction is visually estimated at 60 %. Tissue Doppler/Mitral Doppler indices are consistent with impaired relaxation (Stage I diastolic dysfunction). Right Ventricle: Normal right ventricular size. Normal right ventricular systolic function. Left Atrium: There is mild enlargement of left atrium. Right Atrium: The right atrium is normal in size. Mitral Valve: Normal appearance and function of the mitral valve with trace physiologic regurgitation. Aortic Valve: No hemodynamically significant aortic stenosis by doppler. Moderate aortic valve regurgitation. Tricuspid Valve: Normal appearance of the tricuspid valve. Estimated peak PA systolic pressure 24 mmHg. There is trace to mild tricuspid regurgitation. Pulmonic Valve: There is mild pulmonic regurgitation. Pericardium: Normal pericardium with no significant pericardial effusion. Aorta: Normal aortic root. IVC: Normal size and normal respiratory collapse consistent with normal right atrial pressure. Conclusions: Normal left ventricular systolic function. Normal left ventricular cavity size. Mild concentric left ventricular hypertrophy. Ejection fraction is visually estimated at 60 %. Tissue Doppler/Mitral Doppler indices are consistent with impaired relaxation (Stage I diastolic dysfunction). Moderate aortic valve regurgitation. Estimated peak PA systolic pressure 24 mmHg. Normal size and normal respiratory collapse consistent with normal right atrial pressure. Electronically Signed By: Neri Palencia 2018-06-23 18:09:14 PDT
[2018-06-23] MEDS: ATORVASTATIN 10 MG TAB PO SCH (21:00)
[2018-06-24] VITALS (11 sets, daily range): BP systolic 94–155; BP diastolic 52–79; PULSE 67–84; RESP 16–69
[2018-06-24] MEDS: SOD CHLORIDE 0.9% 1,000 ML IV SCH ×2 (01:09→15:14)
[2018-06-24] MEDS: FAMOTIDINE 20 MG TAB PO SCH ×2 (08:07→20:41)
[2018-06-24] MEDS: VALPROIC ACID 250 MG CAP PO SCH ×2 (08:07→20:41)
[2018-06-24] MEDS: LORATADINE 10 MG TAB PO SCH (08:07)
[2018-06-24] MEDS: BENAZEPRIL 10 MG TAB PO SCH (08:08)
[2018-06-24] MEDS: ASPIRIN (EC) 81 MG TAB PO SCH (08:08)
[2018-06-24] MEDS: LEVOTHYROXINE 25 MCG TAB PO SCH (08:08)
[2018-06-24] MEDS: LOSARTAN 50 MG TAB PO SCH ×2 (08:08→20:42)
[2018-06-24] MEDS: METOPROLOL 25 MG TAB PO SCH ×2 (08:09→20:42)
[2018-06-24] MEDS: ENOXAPARIN 40 MG/0.4 ML SYG SC SCH (08:19)
--- NOTE | 2018-06-24 11:11 | PN ---
Date/Time of Note Date/Time of Note DATE: 06/24/18 TIME: 11:01 Assessment/Plan VTE Prophylaxis Risk score (from Nsg)>0 risk: 6 SCD applied (from Nsg): Yes Lines/Catheters IV Catheter Type (from Nrsg): Peripheral IV Urinary Cath still in place: No Assessment/Plan Hospital Course Subjective: Objective: Constitutional: alert, frail, follow commands appropriately, looks comfortable Head: atraumatic, normocephalic Neck: non-tender, supple Respiratory: clear to auscultation Cardiovascular: regular rate and rhythm Gastrointestinal: S/ NT / ND / +BS Extremities: no edema, good radial pulses previous left-sided hemiparesis, Assessment and plan: 1. Slowly worsening debility and loss of function with reduction in cognition over the last 2 weeks. 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 Old infarct in the medial right occipital lobe noted. -Because of debility is likely change in dosage of antiseizure medication in addition to urinary tract infection. 2. UTI -urine cultures growing gram-negative rods, follow-up final ID and sensitivities -Continue empiric antibiotics 3. Seizure disorder with breakthrough seizures yesterday, focal seizures left- sided drooping and facial twitching -neurology following for antiseizure dosing management -Follow-up EEG 4. Previous CVA with left-sided hemiparesis 5. Hypertension. - Patient patient having improved blood pressure control 6. Dyslipidemia 7. Hypothyroidism. -Patient was found to elevate have elevated TSH, but free T4 within normal range. Will slightly increase dosing of levothyroxine to 50 8. Possible left lower lobe pneumonia versus atelectasis and Bronchitis? --2D echocardiogram showed preserved ejection fraction at 60% but with stage I diastolic dysfunction and moderate aortic valve regurgitation. -Patient may be having a mild diastolic dysfunction CHF contributing to dyspnea on exertion -Continue empiric antibiotics, spot diuresis as needed --Chest x-ray showed no congestion or effusion. -Cardiology review for AVR? PLAN: Continue patient supportive care, plan of care as above-. Further interventions per clinical course -Antiseizure management per neurology, ARU eval Result Diagram: 06/24/18 0547 06/24/18 0547 Results 24hrs Laboratory Tests Test 06/24/18 05:47 White Blood Count 8.8 # Red Blood Count 4.06 L Hemoglobin 12.6 Hematocrit 37.5 Mean Corpuscular Volume 92.4 Mean Corpuscular Hemoglobin 31.0 Mean Corpuscular Hemoglobin Concent 33.6 Red Cell Distribution Width 13.7 Platelet Count 132 #L Mean Platelet Volume 9.1 Immature Granulocytes % 1.100 H Neutrophils % 42.1 Lymphocytes % 33.1 Monocytes % 23.4 H Eosinophils % 0.0 Basophils % 0.3 Nucleated Red Blood Cells % 0.0 Immature Granulocytes # 0.100 H Neutrophils # 3.7 Lymphocytes # 2.9 Monocytes # 2.1 H Eosinophils # 0.0 Basophils # 0.0 Nucleated Red Blood Cells # 0.0 Sodium Level 139 Potassium Level 4.2 Chloride Level 110 Carbon Dioxide Level 22 Anion Gap 7 Blood Urea Nitrogen 14 Creatinine 0.75 Est Glomerular Filtrat Rate mL/min Glucose Level 78 Calcium Level 8.7 Phosphorus Level 3.8 Magnesium Level 1.9 Valproic Acid (Depakene) Level 54 Exam/Review of Systems Exam Vitals Vital Signs Date Temp Pulse Resp B/P (MAP) Pulse Ox O2 O2 Flow FiO2 Time Delivery Rate 06/24/18 84 08:13 06/24/18 98.1 16 114/79 96 07:35 (91) 06/24/18 Nasal 2.0 04:00 Cannula Intake and Output 06/23/18 06/23/18 06/24/18 1515:00 23:00 07:00 IntakeIntake Total 100 ml 200 ml 960 ml BalanceBalance 100 ml 200 ml 960 ml Results Results 24hrs Laboratory Tests Test 06/24/18 05:47 White Blood Count 8.8 # Red Blood Count 4.06 L Hemoglobin 12.6 Hematocrit 37.5 Mean Corpuscular Volume 92.4 Mean Corpuscular Hemoglobin 31.0 Mean Corpuscular Hemoglobin Concent 33.6 Red Cell Distribution Width 13.7 Platelet Count 132 #L Mean Platelet Volume 9.1 Immature Granulocytes % 1.100 H Neutrophils % 42.1 Lymphocytes % 33.1 Monocytes % 23.4 H Eosinophils % 0.0 Basophils % 0.3 Nucleated Red Blood Cells % 0.0 Immature Granulocytes # 0.100 H Neutrophils # 3.7 Lymphocytes # 2.9 Monocytes # 2.1 H Eosinophils # 0.0 Basophils # 0.0 Nucleated Red Blood Cells # 0.0 Sodium Level 139 Potassium Level 4.2 Chloride Level 110 Carbon Dioxide Level 22 Anion Gap 7 Blood Urea Nitrogen 14 Creatinine 0.75 Est Glomerular Filtrat Rate mL/min Glucose Level 78 Calcium Level 8.7 Phosphorus Level 3.8 Magnesium Level 1.9 Valproic Acid (Depakene) Level 54 Medications Medication Current Medications Sodium Chloride 1,000 ml @ 70 mls/hr [id number] IV Last administered on 06/24/18at 01:09; Admin Dose 70 MLS/HR; Start 06/22/18 at 06:06 IV Flush (NS 3 ml) 3 ml PER PROTOCOL IV ; Start 06/22/18 at 06:30 Ondansetron HCl (Zofran Inj) 4 mg Q6H PRN IV NAUSEA/VOMITING; Start 06/22/18 at 06:30 Acetaminophen (Tylenol Tab) 650 mg Q6H PRN PO .PAIN 1-3 OR TEMP; Start 06/22/18 at 06:30 Aspirin (Halfprin) 81 mg DAILY PO Last administered on 06/24/18at 08:08; Admin Dose 81 MG; Start 06/23/18 at 09:00 Benazepril HCl (Lotensin) 10 mg DAILY PO Last administered on 06/24/18at 08:08; Admin Dose 10 MG; Start 06/23/18 at 09:00 Famotidine (Pepcid) 20 mg Q12 PO Last administered on 06/24/18at 08:07; Admin Dose 20 MG; Start 06/22/18 at 21:00 Loratadine (Claritin) 10 mg DAILY PO Last administered on 06/24/18at 08:07; Admin Dose 10 MG; Start 06/23/18 at 09:00 Losartan Potassium (Cozaar) 50 mg BID PO Last administered on 06/24/18 08:08; Admin Dose 50 MG; Start 06/22/18 at 21:00 Metoprolol Tartrate (Lopressor) 25 mg BID PO Last administered on 06/24/18at 0 8:09; Admin Dose 25 MG; Start 06/22/18 at 21:00 Valproic Acid (Depakene) 500 mg BID PO Last administered on 06/24/18at 08:07; Admin Dose 500 MG; Start 06/22/18 at 21:00 Atorvastatin Calcium (Lipitor) 10 mg DAILY@21 PO ; Start 06/22/18 at 21:00 Albuterol (Proventil 0.083% (Neb)) 2.5 mg Q4H RESP THERAPY PRN HHN SHORTNESS OF BREATH; Start 06/22/18 at 16:00 Levofloxacin/ Dextrose 100 ml @ 100 mls/hr Q48H IVPB Last administered on 06/22/18at 17:14; Admin Dose 100 MLS/HR; Start 06/22/18 at 16:00 Levothyroxine Sodium (Synthroid) 25 mcg QAM PO Last administered on 06/24/18at 08:08; Admin Dose 25 MCG; Start 06/23/18 at 09:00 Enoxaparin Sodium (Lovenox) 40 mg DAILY SC Last administered on 06/24/18at 08:19; Admin Dose 40 MG; Start 06/23/18 at 11:00 Lorazepam (Ativan) 2 mg Q4H PRN IV SEIZURES; Start 06/23/18 at 15:30 JIMMY TERRAZAS June 24, 2018 11:11
--- NOTE | 2018-06-24 12:16 | CONS ---
Assessment/Plan Assessment/Plan Hospital Course (Demo Recall) Moderate aortic regurgitation: EF preserved and no CHF on exam. Needs serial monitoring yearly as outpt or if develops symptoms/CHF Seizures h/o CVA HTN -ASA, lipitor -d/c benazepril as already on losartan 50mg BID and BP low this am -metoprolol 25mg BID Consultation Date/Type/Reason Admit Date/Time June 23, 2018 at 10:46 Date of Consultation: June 24, 2018 Type of Consult Cardiology Reason for Consultation aortic regurgitation Requesting Provider: JIMMY TERRAZAS Date/Time of Note DATE: 06/24/18 TIME: 12:10 Hx of Present Illness 73 yo F with a h/o HTN, CVA, seizures, who presented from home due to weakness and decreased mentation. She was found to have moderate aortic regurgitation on echo for which cardiology is consulted. History is obtained from the daughter at bedside. Pt apparently had a seizure about one month ago and her Depakote dose was increased. Since then she has been more somnolent. She had a possible seizure yesterday as well. CT head was unremarkable. She also has been more so mnolent per the daughter since getting ativan. She walks with a cane or walker at baseline. No dyspnea but not very active. No other cardiac disease per daughter. pt sleeping Past Medical History per hpi Home Meds Active Scripts Valproic Acid* (Depakene*) 250 Mg Capsule, 500 MG PO BID for 60 Days, #30 CAP 4 Refills Prov:ANGELO CAMPOS MD 10/27/17 Acetaminophen* (Tylenol*) 325 Mg Tablet, 1 TAB PO Q6 PRN for PAIN AND OR ELEVATED TEMP, #20 TAB Prov:MICHEAL MARTINEZ NP 04/15/15 Metoprolol Tartrate* (Lopressor*) 25 Mg Tab, 25 MG PO BID for 30 Days, TAB Prov:JIMMY TERRAZAS 03/22/15 Famotidine* (Pepcid* AC) 20 Mg Tab, 20 MG PO Q12 for 14 Days, TAB Prov:JIMMY TERRAZAS 03/22/15 Simvastatin (Simvastatin) 20 Mg Tablet, 20 MG PO QHS, #30 TAB 1 Refill Prov:BRIAN KOENIG MD 02/01/15 Albuterol Sulfate* (Albuterol Sulfate* HFA) 8.5 Gm Hfa.aer.ad, 1-2 PUFF INH Q6, #1 INHALER Prov:BRIAN KOENIG MD 01/24/15 Reported Medications Levothyroxine Sodium* (Levothyroxine Sodium*) 25 Mcg Tablet, 25 MG PO QAM for 30 Days, #30 06/22/18 Risperidone* (Risperidone*) 1 Mg Tablet, 1 MG PO DAILY for 30 Days, #30 06/22/18 Benazepril Hcl* (Benazepril Hcl*) 10 Mg Tablet, 10 MG PO DAILY for 90 Days, #90 06/22/18 Losartan Potassium* (Losartan Potassium*) 50 Mg Tablet, 50 MG PO BID, TAB 04/24/15 Loratadine* (Claritin*) 10 Mg Tablet, 10 MG PO DAILY, TAB 01/29/15 Aspirin* (Aspirin* EC) 81 Mg Tablet.dr, 81 MG PO DAILY, TAB 11/07/14 Discontinued Scripts Nitrofurantoin Monohyd Macrocr* (Macrobid*) 100 Mg Capsr, 100 MG PO BID for 4 Days, #8 CAP Prov:ANGELO CAMPOS MD 10/27/17 Zolpidem Tartrate* (Ambien*) 5 Mg Tablet, 5 MG PO HS PRN for INSOMNIA, #7 TAB Prov:ASHLEY PERRY DO 05/06/15 Nitroglycerin* (Nitrostat*) 25 Tab Subl, 1 TAB SL Q5M PRN for CHEST PAIN, #30 TAB Prov:BRIAN KOENIG MD 02/01/15 Medications Current Medications Sodium Chloride 1,000 ml @ 70 mls/hr [id number] IV Last administered on 06/24/18at 01:09; Admin Dose 70 MLS/HR; Start 06/22/18 at 06:06 IV Flush (NS 3 ml) 3 ml PER PROTOCOL IV ; Start 06/22/18 at 06:30 Ondansetron HCl (Zofran Inj) 4 mg Q6H PRN IV NAUSEA/VOMITING; Start 06/22/18 at 06:30 Acetaminophen (Tylenol Tab) 650 mg Q6H PRN PO .PAIN 1-3 OR TEMP; Start 06/22/18 at 06:30 Aspirin (Halfprin) 81 mg DAILY PO Last administered on 06/24/18 08:08; Admin Dose 81 MG; Start 06/23/18 at 09:00 Benazepril HCl (Lotensin) 10 mg DAILY PO Last administered on 06/24/18at 08:08; Admin Dose 10 MG; Start 06/23/18 at 09:00 Famotidine (Pepcid) 20 mg Q12 PO Last administered on 06/24/18at 08:07; Admin Dose 20 MG; Start 06/22/18 at 21:00 Loratadine (Claritin) 10 mg DAILY PO Last administered on 06/24/18at 08:07; Admin Dose 10 MG; Start 06/23/18 at 09:00 Losartan Potassium (Cozaar) 50 mg BID PO Last administered on 06/24/18at 08:08; Admin Dose 50 MG; Start 06/22/18 at 21:00 Metoprolol Tartrate (Lopressor) 25 mg BID PO Last administered on 06/24/18at 08:09; Admin Dose 25 MG; Start 06/22/18 at 21:00 Valproic Acid (Depakene) 500 mg BID PO Last administered on 06/24/18at 08:07; A dmin Dose 500 MG; Start 06/22/18 at 21:00 Atorvastatin Calcium (Lipitor) 10 mg DAILY@21 PO ; Start 06/22/18 at 21:00 Albuterol (Proventil 0.083% (Neb)) 2.5 mg Q4H RESP THERAPY PRN HHN SHORTNESS OF BREATH; Start 06/22/18 at 16:00 Levofloxacin/ Dextrose 100 ml @ 100 mls/hr Q48H IVPB Last administered on 06/22/18at 17:14; Admin Dose 100 MLS/HR; Start 06/22/18 at 16:00 Enoxaparin Sodium (Lovenox) 40 mg DAILY SC Last administered on 06/24/18at 08:19; Admin Dose 40 MG; Start 06/23/18 at 11:00 Lorazepam (Ativan) 2 mg Q4H PRN IV SEIZURES; Start 06/23/18 at 15:30 Levothyroxine Sodium (Synthroid) 50 mcg DAILY@06 PO ; Start 06/25/18 at 06:00 Allergies: Coded Allergies: ertapenem (Unverified Allergy, Severe, 06/22/18) SEIZURES lacosamide (Verified Allergy, Unknown, 06/22/18) levetiracetam (Verified Allergy, Unknown, 06/22/18) hydrocodone (Unverified Adverse Reaction, Severe, Severe Nausea/Vomiting/Dizziness, 06/22/18) Past Surgical History Past Surgical Hx: other Social History Smoking Status: Never smoker Exam/Review of Systems Vital Signs Vitals Vital Signs Date Temp Pulse Resp B/P (MAP) Pulse Ox O2 O2 Flow FiO2 Time Delivery Rate 06/24/18 68 12:07 06/24/18 98.1 19 94/52 (66) 95 11:08 06/24/18 Nasal 2.0 04:00 Cannula Intake and Output 06/23/18 06/23/18 06/24/18 1515:00 23:00 07:00 IntakeIntake Total 100 ml 200 ml 960 ml BalanceBalance 100 ml 200 ml 960 ml Exam Constitutional: No alert (somnolent. Barely arousable but responds. Per daughter unchanged since yesterday) Head: normocephalic, atraumatic Neck: No jvd Respiratory: clear to auscultation; No diminished breath sounds Cardiovascular: regular rate and rhythm, systolic murmur (2/6 TONY); No edema Gastrointestinal: soft, non-tender; No distended Neurological: No nl mental status, No nl speech Labs Result Diagram: 06/24/18 0547 06/24/18 0547 Results 24hrs Laboratory Tests Test 06/24/18 05:47 White Blood Count 8.8 # Red Blood Count 4.06 L Hemoglobin 12.6 Hematocrit 37.5 Mean Corpuscular Volume 92.4 Mean Corpuscular Hemoglobin 31.0 Mean Corpuscular Hemoglobin Concent 33.6 Red Cell Distribution Width 13.7 Platelet Count 132 #L Mean Platelet Volume 9.1 Immature Granulocytes % 1.100 H Neutrophils % 42.1 Lymphocytes % 33.1 Monocytes % 23.4 H Eosinophils % 0.0 Basophils % 0.3 Nucleated Red Blood Cells % 0.0 Immature Granulocytes # 0.100 H Neutrophils # 3.7 Lymphocytes # 2.9 Monocytes # 2.1 H Eosinophils # 0.0 Basophils # 0.0 Nucleated Red Blood Cells # 0.0 Sodium Level 139 Potassium Level 4.2 Chloride Level 110 Carbon Dioxide Level 22 Anion Gap 7 Blood Urea Nitrogen 14 Creatinine 0.75 Est Glomerular Filtrat Rate mL/min Glucose Level 78 Calcium Level 8.7 Phosphorus Level 3.8 Magnesium Level 1.9 Valproic Acid (Depakene) Level 54 Medications Medications Current Medications Sodium Chloride 1,000 ml @ 70 mls/hr [id number] IV Last administered on 06/24/18 01:09; Admin Dose 70 MLS/HR; Start 06/22/18 at 06:06 IV Flush (NS 3 ml) 3 ml PER PROTOCOL IV ; Start 06/22/18 at 06:30 Ondansetron HCl (Zofran Inj) 4 mg Q6H PRN IV NAUSEA/VOMITING; Start 06/22/18 at 06:30 Acetaminophen (Tylenol Tab) 650 mg Q6H PRN PO .PAIN 1-3 OR TEMP; Start 06/22/18 at 06:30 Aspirin (Halfprin) 81 mg DAILY PO Last administered on 06/24/18at 08:08; Admin Dose 81 MG; Start 06/23/18 at 09:00 Benazepril HCl (Lotensin) 10 mg DAILY PO Last administered on 06/24/18at 08:08; Admin Dose 10 MG; Start 06/23/18 at 09:00 Famotidine (Pepcid) 20 mg Q12 PO Last administered on 06/24/18 08:07; Admin Dose 20 MG; Start 06/22/18 at 21:00 Loratadine (Claritin) 10 mg DAILY PO Last administered on 06/24/18 08:07; Admin Dose 10 MG; Start 06/23/18 at 09:00 Losartan Potassium (Cozaar) 50 mg BID PO Last administered on 06/24/18 08:08; Admin Dose 50 MG; Start 06/22/18 at 21:00 Metoprolol Tartrate (Lopressor) 25 mg BID PO Last administered on 06/24/18 08:09; Admin Dose 25 MG; Start 06/22/18 at 21:00 Valproic Acid (Depakene) 500 mg BID PO Last administered on 06/24/18 08:07; Admin Dose 500 MG; Start 06/22/18 at 21:00 Atorvastatin Calcium (Lipitor) 10 mg DAILY@21 PO ; Start 06/22/18 at 21:00 Albuterol (Proventil 0.083% (Neb)) 2.5 mg Q4H RESP THERAPY PRN HHN SHORTNESS OF BREATH; Start 06/22/18 at 16:00 Levofloxacin/ Dextrose 100 ml @ 100 mls/hr Q48H IVPB Last administered on 06/22/18at 17:14; Admin Dose 100 MLS/HR; Start 06/22/18 at 16:00 Enoxaparin Sodium (Lovenox) 40 mg DAILY SC Last administered on 06/24/18at 08:19; Admin Dose 40 MG; Start 06/23/18 at 11:00 Lorazepam (Ativan) 2 mg Q4H PRN IV SEIZURES; Start 06/23/18 at 15:30 Levothyroxine Sodium (Synthroid) 50 mcg DAILY@06 PO ; Start 06/25/18 at 06:00 OSMIN GILES June 24, 2018 12:16
--- NOTE | 2018-06-24 14:48 | RADRPT ---
Vent Rate: 91 bpm RR Interval: 0 msec [place] Interval: 142 msec QRS Duration: 68 msec QT Interval: 326 msec QTC Interval: 400 msec P-R-T Datil: 55 - 34 - 57 degrees Normal sinus rhythm Normal ECG Electronically Signed By: [facility]
[2018-06-24] MEDS: LEVOFLOXACIN 500MG/D5W (PMX) 100 ML IVPB SCH (15:14)
--- NOTE | 2018-06-24 15:46 | CONS ---
Assessment/Plan Assessment/Plan Hospital Course 73 yo F with hx of seizures who presents for evaluation of progressive ams and weakness... for which neurology is consulted. The pt appears to have a refractory UTI. This is most clinically consistent with an acute toxic-metabolic encephalopathy in the context of systemic infection. MRI is reassuringly without acute intracranial pathology. P: Cont depakote 750mg BID for now; repeat level in am Ativan IV PRN prolonged seizure or for cluster [place] as able Limit sedating medications where possible PT/OT/ST as necessary Will follow clinically Consultation Date/Type/Reason Admit Date/Time June 23, 2018 at 10:46 Type of Consult Neurology Requesting Provider: JIMMY TERRAZAS Date/Time of Note DATE: 06/24/18 TIME: 15:45 24 HR Interval Summary Free Text/Dictation Continues acute care Exam Vital Signs Vitals Vital Signs Date Temp Pulse Resp B/P (MAP) Pulse Ox O2 O2 Flow FiO2 Time Delivery Rate 06/24/18 98.2 76 17 104/52 97 15:14 (69) 06/24/18 Nasal 2.0 04:00 Cannula Intake and Output 06/23/18 06/23/18 06/24/18 1414:59 22:59 06:59 IntakeIntake Total 100 ml 200 ml 960 ml BalanceBalance 100 ml 200 ml 960 ml CLAIRE MARQUES June 24, 2018 15:46
--- NOTE | 2018-06-24 16:04 | EEG ---
EEG NOTE Report Details DATE OF TEST: 06/24/18 HISTORY: The patient is a 73-year-old F who presents with altered mental status. This EEG is requested to rule out nonconvulsive status epilepticus. SEDATION: None. CONDITIONS OF RECORDING: This EEG was recorded digitally on the [employer] machine, using the International 10-20 System of electrodes plus anterior temporals and [place]. STATES SAMPLED: Lethargic. FINDINGS: The background is continuous and symmetric...predominated by polymorphic theta and delta activity. During wakefulness, a well-formed posterior dominant rhythm is absent.. The normal fmpkaukg-to-cmdavtkhw frequency-amplitude gradient was absent. Photic stimulation does not elicit any definite driving responses or epileptiform discharges. Hyperventilation was not performed. No asymmetries, focal abnormalities or epileptiform discharges were seen. IMPRESSION: Abnormal electroencephalogram due to: diffuse slowing. CLAIRE MARQUES June 24, 2018 16:04
[2018-06-24] MEDS: ATORVASTATIN 10 MG TAB PO SCH (20:43)
[2018-06-25 00:35] VITALS: PULSE 72
[2018-06-25 02:00] VITALS: BP 129/60; PULSE 72; RESP 18
[2018-06-25] MEDS: SOD CHLORIDE 0.9% 1,000 ML IV SCH (05:44)
[2018-06-25] MEDS ORDERED: LEVOTHYROXINE 50 MCG TAB PO SCH (06:00)
[2018-06-25 07:58] VITALS: BP 136/68; PULSE 68; RESP 18
[2018-06-25] MEDS: ASPIRIN (EC) 81 MG TAB PO SCH (08:19)
[2018-06-25] MEDS: VALPROIC ACID 250 MG CAP PO SCH (08:19)
[2018-06-25] MEDS: LOSARTAN 50 MG TAB PO SCH (08:19)
[2018-06-25] MEDS: FAMOTIDINE 20 MG TAB PO SCH (08:19)
[2018-06-25] MEDS: LORATADINE 10 MG TAB PO SCH (08:19)
[2018-06-25] MEDS: METOPROLOL 25 MG TAB PO SCH (08:20)
[2018-06-25] MEDS: ENOXAPARIN 40 MG/0.4 ML SYG SC SCH (08:31)
--- NOTE | 2018-06-25 11:40 | PDOCDIS ---
Discharge Instructions DIAGNOSIS Discharge Diagnosis Vascular dementia CONDITION [id number] Patient Condition: [id number] Stable FOLLOW UP/APPOINTMENTS Follow-up Plan See your doctor in clinic in the next few weeks Return to the emergency room if you have any concerning symptoms Continue your medications as prescribed ANGELO CAMPOS MD June 25, 2018 11:40
--- NOTE | 2018-06-25 13:38 | DS ---
Date/Time of Note Date/Time of Note DATE: 06/25/18 TIME: 13:36 Discharge Summary Admission/Discharge Info Admit Date/Time June 23, 2018 at 10:46 Discharge Date/Time Discharge Diagnosis Vascular dementia Patient Condition: Stable Hospital Course Patient was treated for a UTI Continued on her AEDs by neurology MRI brain showed evidence of old stroke but nothing new Mental and respiratory status returned to baseline Patient has unstable gait, I recommend a wheelchair as it is unsafe to walk with a walker. It will improve the patients participation in daily activity; patient is willing to use the wheelchair at home and caregiver will be available to help with the wheelchair Home Meds Active Scripts Valproic Acid* (Depakene*) 250 Mg Capsule, 500 MG PO BID for 60 Days, #30 CAP 4 Refills Prov:ANGELO CAMPOS MD 10/27/17 Acetaminophen* (Tylenol*) 325 Mg Tablet, 1 TAB PO Q6 PRN for PAIN AND OR ELEVATED TEMP, #20 TAB Prov:MICHEAL MARTINEZ NP 04/15/15 Metoprolol Tartrate* (Lopressor*) 25 Mg Tab, 25 MG PO BID for 30 Days, TAB Prov:JIMMY TERRAZAS 03/22/15 Famotidine* (Pepcid* AC) 20 Mg Tab, 20 MG PO Q12 for 14 Days, TAB Prov:JIMMY TERRAZAS 03/22/15 Simvastatin (Simvastatin) 20 Mg Tablet, 20 MG PO QHS, #30 TAB 1 Refill Prov:BRIAN KOENIG MD 02/01/15 Albuterol Sulfate* (Albuterol Sulfate* HFA) 8.5 Gm Hfa.aer.ad, 1-2 PUFF INH Q6, #1 INHALER Prov:BRIAN KOENIG MD 01/24/15 Reported Medications Levothyroxine Sodium* (Levothyroxine Sodium*) 25 Mcg Tablet, 25 MG PO QAM for 30 Days, #30 06/22/18 Risperidone* (Risperidone*) 1 Mg Tablet, 1 MG PO DAILY for 30 Days, #30 06/22/18 Benazepril Hcl* (Benazepril Hcl*) 10 Mg Tablet, 10 MG PO DAILY for 90 Days, #90 06/22/18 Losartan Potassium* (Losartan Potassium*) 50 Mg Tablet, 50 MG PO BID, TAB 04/24/15 Loratadine* (Claritin*) 10 Mg Tablet, 10 MG PO DAILY, TAB 01/29/15 Aspirin* (Aspirin* EC) 81 Mg Tablet.dr, 81 MG PO DAILY, TAB 11/07/14 Discontinued Scripts Nitrofurantoin Monohyd Macrocr* (Macrobid*) 100 Mg Capsr, 100 MG PO BID for 4 Days, #8 CAP Prov:ANGELO CAMPOS MD 10/27/17 Zolpidem Tartrate* (Ambien*) 5 Mg Tablet, 5 MG PO HS PRN for INSOMNIA, #7 TAB Prov:ASHLEY PERRY DO 05/06/15 Nitroglycerin* (Nitrostat*) 25 Tab Subl, 1 TAB SL Q5M PRN for CHEST PAIN, #30 TAB Prov:BRIAN KOENIG MD 02/01/15 Follow-up Plan See your doctor in clinic in the next few weeks Return to the emergency room if you have any concerning symptoms Continue your medications as prescribed Primary Care Provider Not On Staff Doctor Pending Labs Laboratory Tests Test 06/25/18 05:17 White Blood Count 7.5 10^3/ul (4.8-10.8) Red Blood Count 4.05 10^6/ul (4.20-5.40) Hemoglobin 12.8 g/dl (12.0-16.0) Hematocrit 37.3 % (37.0-47.0) Mean Corpuscular Volume 92.1 fl (82.0-101.0) Mean Corpuscular Hemoglobin 31.6 pg (29.0-33.0) Mean Corpuscular Hemoglobin Concent 34.3 g/dl (32.0-37.0) Red Cell Distribution Width 13.7 % (11.5-14.5) Platelet Count 153 10^3/UL (140-415) Mean Platelet Volume 9.5 fl (7.4-10.4) Immature Granulocytes % 1.900 % (0.001-0.429) Neutrophils % 35.2 % (39.0-77.0) Lymphocytes % 40.1 % (15.0-51.0) Monocytes % 22.4 % (0.0-11.0) Eosinophils % 0.0 % (0.0-7.0) Basophils % 0.4 % (0.0-2.0) Nucleated Red Blood Cells % 0.0 /100WBC (0.0-0.0) Immature Granulocytes # 0.140 10^3/ul (0.0-0.031) Neutrophils # 2.7 10^3/ul (1.6-7.5) Lymphocytes # 3.0 10^3/ul (0.8-2.9) Monocytes # 1.7 10^3/ul (0.3-0.9) Eosinophils # 0.0 10^3/ul (0.0-0.5) Basophils # 0.0 10^3/ul (0.0-0.1) Nucleated Red Blood Cells # 0.0 10^3/ul (0.0-0.0) Sodium Level 140 mmol/L (135-144) Potassium Level 4.0 mmol/L (3.5-5.1) Chloride Level 112 mmol/L (97-110) Carbon Dioxide Level 23 mmol/L (21-31) Anion Gap 5 (5-13) Blood Urea Nitrogen 14 mg/dl (7-20) Creatinine 0.71 mg/dl (0.44-1.00) Est Glomerular Filtrat Rate mL/min mL/min (>60) Glucose Level 107 mg/dl (70-220) Calcium Level 7.9 mg/dl (8.4-10.2) ANGELO CAMPOS MD June 25, 2018 13:38
== END 2018-06-25 14:00 | disposition home or self-care (01) | DRG 884 ==
LOC: E/R 04:18 → TEL 05:43 → SUATTDRO 15:50 → OBSVTOIN 06-23 10:46 → PP2 06-25 02:18
PROVIDERS: ADMIT Family Medicine; ATTEND Family Medicine
DX: F01.50 Vascular dementia, unspecified severity, without behavioral disturbance, psychotic disturbance, mood disturbance, and anxiety (principal); N39.0 Urinary tract infection, site not specified; E78.5 Hyperlipidemia, unspecified; E03.9 Hypothyroidism, unspecified; Z86.73 Personal history of transient ischemic attack (TIA), and cerebral infarction without residual deficits; I10 Essential (primary) hypertension; G40.909 Epilepsy, unspecified, not intractable, without status epilepticus; Z79.82 Long term (current) use of aspirin
CPT/HCPCS: 36415; 70450; 70551; 71045; 80048; 80053; 80061; 80164; 80307; 81001; 82962; 83036; 83605; 83735; 83880; 84100; 84439; 84443; 84484; 85025; 85610; 85730; 87081; 87086; 92610; 93005; 93306; 95819; 97110; 97162; 97530; G0378; J1650; J1956; J2060; J3475; J7030